=== PATIENT | female | born 1995 | race Caucasian/White ===

== ENCOUNTER 2016-08-23 23:51 | Emergency (ER) | payer OTHER ==
[2016-08-24 00:40] LABS: Alcohol 293 mg/dL (<10)
--- NOTE | 2016-08-24 01:12 | ED ---
Pricila Jimenez Matthew, scribed for Bairon Casarez MD on 08/24/16 at 0008 . Substance Abuse/Use - HPI Summary HPI Summary: A 21 y/o female presents to the ED with EtOH intoxication. Per EMS, the patient showed up at her friends house and passed out on the floor. At that time they called EMS. She is responsive to voice. Associated symptoms include vomiting. No other known drug use. A complete HPI is unable to obtained, and the patient is a LEVEL 5 CAVEAT. - History Of Current Complaint Stated Complaint: ETOH Time Seen by Provider: 08/23/16 23:53 Hx Obtained From: EMS Hx From Patient Unobtainable Due To: Altered Mental Status ?: No Onset/Duration of Drug/ETOH Abuse: Hours Overdose Characteristics: Oral Timing Of Abuse: Binge Use Severity Initially: Moderate Severity Currently: Moderate Character: Stuporous Associated Signs And Symptoms: Vomiting PMH/Surg Hx/FS Hx/Imm Hx - Social History Occupation: Student - IC Alcohol Use: Occasionally - Additional Comments History Additional Comments: A PMHx is unable to obtained, because the patient is unresponsive. She is a level 5 CAVEAT. Review of Systems Positive: Vomiting Psychological: Other - Alcohol Intoxication All Other Systems Reviewed And Are Negative: No - Comments Additional Review of Systems Comments: A complete ROS is unable to be obtained, because the patient is unresponsive. She is a LEVEL 5 CAVEAT. Physical Exam Triage Information Reviewed: Yes Vital Signs On Initial Exam: Initial Vitals Temp Pulse Resp BP Pulse Ox 97.8 F 80 14 119/78 99 08/23/16 23:57 08/23/16 23:57 08/23/16 23:57 08/23/16 23:57 08/23/16 23:57 Vital Signs Reviewed: Yes Appearance: Positive: Well-Appearing, No Pain Distress - aob Skin: Positive: Warm Head/Face: Positive: Normal Head/Face Inspection Eyes: Positive: BETH ENT: Positive: Hearing grossly normal Neck: Positive: Supple Respiratory/Lung Sounds: Positive: Breath Sounds Present Cardiovascular: Positive: Normal Abdomen Description: Positive: Nontender, Soft Bowel Sounds: Positive: Present Musculoskeletal: Positive: Strength/ROM Intact Neurological: Positive: Sensory/Motor Intact, Alert, Oriented to Person Place, Time Diagnostics - Vital Signs Vital Signs Temp Pulse Resp BP Pulse Ox 08/24/16 00:51 97.2 F 90 24 87/50 100 01/28/17 00:28 97.7 F 84 16 81/45 100 08/24/16 00:00 96.7 F 87 16 89/45 99 08/23/16 23:57 97.8 F 80 14 119/78 99 - Laboratory Lab Results: Lab Results 08/24/16 Range/Units 00:02 Beta HCG, Quant < 0.60 mIU/mL Serum Alcohol 293 H (<10) mg/dL Lab Statement: Any lab studies that have been ordered have been reviewed, and results considered in the medical decision making process. Re-Evaluation - Re-Evaluation First Eval Change: Improved Course/Dx - Course Assessment/Plan: A 21 y/o female presents to the ED with EtOH intoxication. The patient will be discharged when she is safe for discharge and follow-up with [facility]. - Diagnoses Provider Diagnoses: Alcohol intoxication Discharge - Discharge Plan Condition: Improved Disposition: HOME Patient Education Materials: Alcohol Intoxication (ED) [facility] The documentation as recorded by the Pricila regalado Matthew accurately reflects the service I personally performed and the decisions made by me, Bairon Casarez MD.
[2016-08-24 10:01] VITALS: BP 112/63
== END 2016-08-24 10:00 | disposition home or self-care (01) ==
LOC: ED 23:51
DX: F10.129 Alcohol abuse with intoxication, unspecified (principal); R41.82 Altered mental status, unspecified; R11.10 Vomiting, unspecified
CPT/HCPCS: 36415; 80320; 84702; 99282; G0480